=== PATIENT | male | born 1975 | race Caucasian/White ===

== ENCOUNTER 2020-01-31 16:32 | Emergency (ER) | payer OTHER ==
[2020-01-31] MEDS ORDERED: Bacitracin Oint 1 GM U/D Packet TOP ONE (16:45)
--- NOTE | 2020-01-31 16:48 | EDM.PDOC ---
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 It occurred 1 hour ago. No other injury. Onset: Sudden Duration: Hour(s): (1 hour ago) Location: Reports: Upper Extremity, Left Associated Symptoms: Reports: No Other Symptoms - Related Data Allergies Allergy/AdvReac Type Severity Reaction Status Date / Time No Known Allergies Allergy Verified 01/31/20 16:44 Home Meds: Home Meds . [No Known Home Meds] 0 tab PO DAILY 01/31/20 [History] ED ROS GENERAL - Review of Systems Review Of Systems: See Below Constitutional: Denies: Fever, Chills Respiratory: Denies: Shortness of Breath GI/Abdominal: Denies: Nausea, Vomiting Neurological: Denies: Paresthesia (No significant numbness of the distal arm) ED EXAM, SKIN/RASH Exam: See Below Exam Limited By: No Limitations General Appearance: Alert, No Apparent Distress Head: Atraumatic Respiratory/Chest: No Respiratory Distress, Lungs Clear Extremities: Other (Exam is otherwise limited to the left upper extremity. There is a 3 cm somewhat angled laceration to the flexor surface of the left forearm that is into the subcutaneous tissue. Distal CMS is intact) Neurological: Alert, Oriented Course - Vital Signs Last Recorded V/S: Last Vital Signs Temp 97.6 F 01/31/20 16:52 Pulse 75 01/31/20 16:52 Resp 14 01/31/20 16:52 BP 131/86 01/31/20 16:52 Pulse Ox 95 01/31/20 16:52 - Orders/Labs/Meds Orders: Active Orders 24 hr Category Date Time Status Vaccines to be Administered [RC] PER UNIT ROUTINE Care 01/31/20 17:27 Active Meds: Medications Discontinued Medications Generic Name Dose Route Start Last Admin Trade Name Freq PRN Reason Stop Dose Admin Bacitracin 1 dose 01/31/20 16:45 01/31/20 17:34 Bacitracin Oint 1 Gm TOP 01/31/20 16:46 1 dose ONETIME ONE Administration Diphtheria/Tetanus/Acell Pertussis 0.5 ml 01/31/20 17:27 01/31/20 17:35 Adacel IM 01/31/20 17:28 0.5 ml .ONCE ONE Administration Lidocaine HCl 5 ml 01/31/20 16:45 01/31/20 17:34 Xylocaine-Mpf 1% INJECT 01/31/20 16:46 5 ml ONETIME ONE Administration - Re-Assessments/Exams Free Text/Narrative Re-Assessment/Exam: 01/31/20 17:30 The wound was sterilized with alcohol, infiltrated with 1% lidocaine and flushed thoroughly with saline. Five 4-0 Ethilon sutures were used to close the laceration. He was given a Tdap booster as it has been over 8 years since he had a vaccination. Topical bacitracin and a dressing was applied, sutures can be removed in 8 days. He should recheck sooner if concerns of infection or not healing satisfactorily. Departure - Departure Time of Disposition: 17:42 Disposition: Home, Self-Care 01 Clinical Impression: Laceration of forearm, left Qualifiers: Encounter type: initial encounter Qualified Code(s): S51.812A - Laceration without foreign body of left forearm, initial encounter - Discharge Information Instructions: Laceration Care, Adult Referrals: PCP,None [Primary Care Provider] - Forms: ED Department Discharge Care Plan Goals: Keep wound covered and clean while healing. Sutures can be removed in 8 days, increase activity as tolerated. Recheck sooner if concerns of infection or not healing satisfactorily. - My Orders Last 24 Hours: My Active Orders 01/31/20 17:27 Vaccines to be Administered [RC] PER UNIT ROUTINE - Assessment/Plan Last 24 Hours: My Active Orders 01/31/20 17:27 Vaccines to be Administered [RC] PER UNIT ROUTINE
[2020-01-31] MEDS ORDERED: Diphtheria,Pertussis(Acell),Tetanus Vaccine 0.5 ML SDV IM ONE (17:27)
== END 2020-01-31 17:40 | disposition home or self-care (01) ==
LOC: JP.ED 16:32
DX: S51.812A Laceration without foreign body of left forearm, initial encounter (principal); Z23 Encounter for immunization; W27.8XXA Contact with other nonpowered hand tool, initial encounter
CPT/HCPCS: 12002; 90471; 90715; 99282; J2001; 99283